=== PATIENT | female | born 1960 | race Native Hawaiian/Other Pacific Islander ===

== ENCOUNTER 2020-07-25 15:13 | Outpatient (CLI) | payer OTHER | END 2020-07-25 22:24 | disposition home or self-care (01) | LOC: MAMMO 15:13 | PROVIDERS: ATTEND Nurse Practitioner Family | DX: Z12.31 Encounter for screening mammogram for malignant neoplasm of breast (principal); N60.19 Diffuse cystic mastopathy of unspecified breast ==